=== PATIENT | female | born 1965 | race Caucasian/White ===

== ENCOUNTER 2016-12-18 15:10 | Emergency (ER) | payer BC, OTHER ==
[~2016-12-18] VITALS: Ht 157.5 cm; Wt 54.4 kg
[~2016-12-18 15:10] MED LIST: ATIVAN0.5 MG ORAL; DOXYCYCLINE MO100 MG ORAL; KEFLEX500 MG ORAL; MULTIVITAMINS1 EA11 ORAL; VIBRAMYCIN100 MG ORAL
[2016-12-18 15:18] VITALS: BP 114/74
[2016-12-18] MEDS ORDERED: NKM (15:22)
--- NOTE | 2016-12-18 16:29 | Emergency Room Report ---
History of Present Illness General Chief Complaint: Abdominal Pain Source: Patient Present Illness HPI [id number] walk-in with abd "cramps" nausea (vomiting 1x on thursday). No diarrhea, fever/chills. No previous abd surgery. Denies urinary complaints. Tolerating PO now (drinking water in ED). Denies chest pain, SOB. 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." Allergies: Coded Allergies: No Known Allergies (Verified , 10/27/13) Patient History Past Medical History: none Past Surgical History: none Pertinent Family History: none Social History: Denies: alcohol use, drug use, smoking Last Menstrual Period: 10/09/16 Now: No Immunizations: UTD Reviewed Nursing Documentation: PMH: Agreed, PSxH: Agreed Nursing Documentation-PMH Past Medical History: No Stated History Hx Cardiac Problems: Yes Hx Cancer: No Hx Gastrointestinal Problems: No Hx Neurological Problems: No Review of Systems All Other Systems: negative except mentioned in HPI Physical Exam Vital Signs Date Time Temp Pulse Resp B/P Pulse Ox O2 Delivery O2 Flow Rate FiO2 12/18/16 15:18 98.1 72 18 114/74 98 Room Air Sp02 EP Interpretation: reviewed, normal General Appearance: normal inspection, well appearing, no apparent distress, alert, GCS 15, non-toxic Head: normocephalic, atraumatic Eyes: bilateral eye EOMI, bilateral eye PERRL ENT: normal ENT inspection, hearing grossly normal, normal voice Neck: normal inspection, full range of motion, supple, no bony tend Respiratory: normal inspection, lungs clear, normal breath sounds, no respiratory distress, no retraction, no wheezing Cardiovascular #1: regular rate, rhythm, no edema Gastrointestinal: normal inspection, normal bowel sounds, non tender, soft, no guarding, no hernia Genitourinary: no CVA tenderness Musculoskeletal: normal inspection, back normal, normal range of motion, Larry' s Sign negative Neurologic: normal inspection, alert, oriented x3, responsive, well blower III-XII nml as tested, motor strength/tone normal, speech normal Psychiatric: normal inspection, judgement/insight normal, mood/affect normal Skin: normal inspection, normal color, no rash Medical Decision Making Diagnostic Impression: Primary Impression: Abdominal pain Qualified Codes: R10.84 - Generalized abdominal pain Additional Impression: Dizziness ER Course Abd pain for 2-3 days assoc with dizziness - VSS. Afebrile. - Abdomen grossly non-focal on serial exam - Tolerating PO - ECG shows new TWI in anterior leads - not seen on previous - Labs: H&H stable. No leuks. Troponin 0. No other metabolic abnormalities. UA negative. - Refused PO and IV meds - Strongly encouraged admission for r/o ACS given dizziness and new TWI on ECG but patient refused. Patient is clinically sober, is free from from distracting injury, and has intact judgement and capacity to decide to leave against medical advice. Patient came in with dizziness and abdominal discomfort. ECG shows new TWI in anterior leads. I have concerned for ischemia or acute coronary syndrome. 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 Patient verbalized back to me understanding of these risks but still wants to leave. I repeated my concerns multiple times to patient at 445pm and again at 515pm but patient still wants to sign out AMA. Was given copy of ECG, lab results. 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 Understands to return to ER for worsening symptoms. patient signed paperwork and was placed in chart. EKG Diagnostic Results Rate: normal Rhythm: NSR ST Segments: other - new TWI in anterior leads Rhythm Strip Diag. Results EP Interpretation: yes Rate: 65 Rhythm: NSR, no PVC's, no ectopy Last Vital Signs Date Time Temp Pulse Resp B/P Pulse Ox O2 Delivery O2 Flow Rate FiO2 12/18/16 15:18 98.1 72 18 114/74 98 Room Air Status: improved Disposition: AGAINST MEDICAL ADVICE STEPHANIE THURSTON M.D. Dec 18, 2016 16:29
[2016-12-18 16:37] LABS: BASOPHILS % (AUTO) 1.7 % (0.0-2.0); EOSINOPHILS % (AUTO) 0.9 % (0.0-3.0); LYMPHOCYTES % (AUTO) 48.3 % (20.0-45.0); MEAN CORPUSCULAR HEMOGLOBIN 31.8 PG (27.0-31.0); MEAN CORPUSCULAR HGB CONC 34.5 G/DL (32.0-36.0); MEAN CORPUSCULAR VOLUME 92 FL (80-99); MEAN PLATELET VOLUME 7.3 FL (6.5-10.1); MONOCYTES % (AUTO) 8.1 % (1.0-10.0); NEUTROPHILS % (AUTO) 40.9 % (45.0-75.0); PLATELET COUNT 240 K/UL (150-450); RED BLOOD COUNT 4.31 M/UL (4.20-5.40); RED CELL DISTRIBUTION WIDTH 10.3 % (11.6-14.8); WHITE BLOOD COUNT 3.8 K/UL (4.8-10.8)
[2016-12-18 16:55] LABS: APPEARANCE,URINE CLEAR; KETONES,URINE NEGATIVE (NEGATIVE); LEUKOCYTE ESTERASE ,URINE NEGATIVE (NEGATIVE); NITRITE,URINE NEGATIVE (NEGATIVE); PH,URINE 9 (4.5-8.0); PROTEIN,URINE NEGATIVE (NEGATIVE); UROBILINOGEN,URINE NORMAL MG/DL (0.0-1.0)
[2016-12-18 17:07] LABS: TROPONIN I < 0.30 ng/mL (<=0.30)
[2016-12-18 17:08] LABS: ALANINE AMINOTRANSFERASE 11 U/L (3-33); ANION GAP 13 (5-15); ASPARTATE AMINO TRANSFERASE 12 U/L (5-40); CALCIUM 9.5 mg/dL (8.6-10.2); CARBON DIOXIDE 29 mEQ/L (20-30); CHLORIDE 101 mEQ/L (98-107); CREATININE 0.7 mg/dL (0.5-0.9); GLOMERULAR FILTRATION RATE > 60 mL/min (>60); HEMOLYSIS 4; LIPASE 34 U/L (< 60); POTASSIUM 4.2 mEQ/L (3.4-4.9); SODIUM 143 mEQ/L (135-145); TOTAL PROTEIN 6.6 g/dL (6.6-8.7)
[2016-12-18 17:30] VITALS: BP 114/74
--- NOTE | 2016-12-19 18:44 | Cardiology Report ---
APPROVED REPORT EKG Measurement Heart [id number] Normal sinus rhythm Low voltage QRS T wave abnormality, consider anterior ischemia Abnormal ECG
== END 2016-12-18 17:30 | disposition left against medical advice (07) ==
LOC: EMR 15:55
DX: R10.9 Unspecified abdominal pain (principal); R42 Dizziness and giddiness
CPT/HCPCS: 36415; 80053; 81003; 83690; 84484; 85025; 93005; 99283